=== PATIENT | female | born 1965 | race Caucasian/White ===

== ENCOUNTER 2016-06-12 22:39 | Emergency (ER) | payer OTHER ==
[~2016-06-12] VITALS: Ht 165.1 cm; Wt 65.9 kg
[~2016-06-12 22:39] MED LIST: CHOL500051 PO; DEXT5TAB23 PO; DULO60CA61 PO; GABA-500 PO; TRAM50TA2 PO
[2016-06-12 22:49] VITALS: BP 151/83; PULSE 84; RESP 16; O2SAT 97
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
[2016-06-13] MEDS ORDERED: Promethazine 50 mg/mL Inj IM ONE (00:10)
[2016-06-13] MEDS ORDERED: Promethazine 25 mg/mL Inj IM ONE (00:20)
[2016-06-13] MEDS ORDERED: PROM25TA14 PO (01:06)
[2016-06-13 02:21] VITALS: BP 151/83; PULSE 84; RESP 16; O2SAT 97
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
== END 2016-06-13 02:24 | disposition home or self-care (01) ==
LOC: EDBD 22:39 → EDUNIT# 22:39 → SED 22:39
DX: G43.109 Migraine with aura, not intractable, without status migrainosus (principal); S09.8XXA Other specified injuries of head, initial encounter; W22.8XXA Striking against or struck by other objects, initial encounter; Y93.89 Activity, other specified; Y92.9 Unspecified place or not applicable; Y99.8 Other external cause status; K21.9 Gastro-esophageal reflux disease without esophagitis; Z87.891 Personal history of nicotine dependence; Z91.011 Allergy to milk products
CPT/HCPCS: 70450; 96372; 99284; J1200; J2550